=== PATIENT | male | born 1970 | race Caucasian/White ===

== ENCOUNTER → 2017-01-11 | Outpatient (CLI) | payer MEDICARE, MEDICAID ==
--- NOTE | 2017-01-11 15:30 | RADIOLOGY REPORT (SQ) ---
EXAM DESCRIPTION: MRI HEAD COMBO COMPLETED DATE/TIME: 01/11/2017 2:33 pm REASON FOR STUDY: MS(G35), INVOLUNTARY MOVEMENTS (R25.9) G35 MULTIPLE SCLEROSIS R25.9 UNSPECIFIED ABNORMAL INVOLUNTARY MOVEMENTS COMPARISON: 11/25/2015 TECHNIQUE: Multiplanar imaging includes noncontrasted T1, T2, FLAIR, Diffusion with ADC map and post gadolinium contrast T1 sequences. Images stored on PACS. CONTRAST TYPE AND DOSE: 20 mL Multihance. RENAL FUNCTION: GFR > 60. LIMITATIONS: Motion. FINDINGS: ANATOMY: No anomalies. Normal vascular flow voids. Pituitary fossa normal. CSF SPACES: Stable. CEREBRUM: High-signal intensity lesions scattered throughout the white matter on FLAIR sequences are not significantly changed. No evidence of hemorrhage, mass, extraaxial fluid collection or acute isch emic change. No enhancing lesions. POSTERIOR FOSSA: No signal alteration. No hemorrhage. No edema, masses, or mass effect. Internal aileen tory canals, cerebello-pontine angles, mastoids normal. No enhancing lesions. ORBITS: No masses. Globes normal. PARANASAL SINUSES: No fluid levels. Mucosa normal. DIFFUSION: Normal. No evidence of recent infarct. OTHER: No other significant finding. IMPRESSION: Stable appearance consistent with clinical history. No evidence of active demyelination . EVIDENCE OF ACUTE STROKE: NO. TECHNICAL DOCUMENTATION: JOB ID: [id number]- All Rights Reserved
--- NOTE | 2017-01-11 15:40 | RADIOLOGY REPORT (SQ) ---
EXAM DESCRIPTION: MRI CERVICAL SPINE COMBO COMPLETED DATE/TIME: 01/11/2017 2:33 pm REASON FOR STUDY: MS G35 MULTIPLE SCLEROSIS R25.9 UNSPECIFIED ABNORMAL INVOLUNTARY MOVEMENTS COMPARISON: 11/25/2015 TECHNIQUE: Sagittal and Axial imaging includes T1, T2, STIR and gradient echo sequences. T1 post yina olinium sequences. CONTRAST TYPE AND DOSE: 20 mL Multihance. RENAL FUNCTION: None required. The patient is less than 50 years old. LIMITATIONS: Considerable motion artifact. FINDINGS: At the C5 level, approximately 1 cm focus of increased T2 signal in the cord to left of mi dline which does not enhance. Fusiform increased T2 signal in the cord at the C2-3 level without def inite enhancement. Bulging discs C4- 5, C5- 6 and C6-7 which are unchanged. No significant marrow abnormality. IMPRESSION: Technical limitations due to motion. Foci of inactive demyelination in the cord. No de finitive active demyelination. COMMENT: None. TECHNICAL DOCUMENTATION: JOB ID: [id number] [email or web address]- All Rights Reserved
== END ==
LOC: RAD 12:24
PROVIDERS: ATTEND Psychiatry & Neurology Neurology
DX: G35 Multiple sclerosis (principal); R25.9 Unspecified abnormal involuntary movements
CPT/HCPCS: 70553; 72156; A9577

== ENCOUNTER 2017-01-18 10:12 | Inpatient (IN) | payer MEDICARE, MEDICAID ==
[2017-01-18] MEDS ORDERED: CEFTRIAXONE 1 GM/D5W RTU 1 GM/50 ML RTUPB IV ONE (10:17)
[2017-01-18] MEDS ORDERED: NORMAL SALINE 1000 ML 1,000 ML IV ONE (10:17)
--- NOTE | 2017-01-18 10:24 | ER Document Report ---
ED General - General Stated Complaint: FEVER Time Seen by Provider: 01/18/17 10:17 Mode of Arrival: Medic Information source: Patient, Emergency Med Personnel Notes: 46-year-old male history of multiple sclerosis who resides at a care facility presents from the care facility with concerns of fever altered mental status. EMS notes patient's speech is at his baseline. Patient denies a cough or pain anywhere but is noted to have urinated on himself multiple times TRAVEL OUTSIDE OF THE [place] IN LAST 30 DAYS: No - HPI Onset: Yesterday - Patient refused to come in last night - Related Data Allergies/Adverse Reactions: atorvastatin calcium [From Lipitor] Allergy (Verified 01/23/16 16:35) clarithromycin [From Biaxin] Allergy (Verified 01/23/16 16:35) codeine [Codeine] Allergy (Verified 01/23/16 16:35) Past Medical History - Social History Smoking Status: Never Smoker Cigarette use (# per day): No Chew tobacco use (# tins/day): No Smoking Education Provided: No Family History: Reviewed & Not Pertinent - Past Medical History Cardiac Medical History: Reports: Hx Hypercholesterolemia - Immunizations Hx Diphtheria, Pertussis, Tetanus Vaccination: Yes Review of Systems - Review of Systems Notes: REVIEW OF SYSTEMS: CONSTITUTIONAL : Admits fever EENT: Denies eye, ear, throat, or mouth pain or symptoms. Denies nasal or sinus congestion or discharge. Denies throat, tongue, or mouth swelling or difficulty swallowing. CARDIOVASCULAR: Denies chest pain. Denies palpitations or racing or irregular heart beat. Denies ankle edema. RESPIRATORY: Denies cough, cold, or chest congestion. Denies shortness of breath, difficulty breathing, or wheezing. GASTROINTESTINAL: Denies abdominal pain or distention. Denies nausea, vomiting , or diarrhea. Denies blood in vomitus, stools, or per rectum. Denies black, tarry stools. Denies constipation. GENITOURINARY: Denies difficulty urinating, painful urination, burning, frequency, blood in urine, or discharge. MUSCULOSKELETAL: Denies back or neck pain or stiffness. Denies joint pain or swelling. SKIN: Denies rash, lesions or sores. HEMATOLOGIC : Denies easy bruising or bleeding. LYMPHATIC: Denies swollen, enlarged glands. NEUROLOGICAL: Confusion PSYCHIATRIC: Denies anxiety or stress. Denies depression, suicidal ideation, or homicidal ideation. ALL OTHER SYSTEMS REVIEWED AND NEGATIVE. Dictation was performed using [employer] voice recognition software PHYSICAL EXAMINATION: GENERAL: Well-appearing, well-nourished and in no acute distress. Febrile HEAD: Atraumatic, normocephalic. EYES: Pupils equal round and reactive to light, extraocular movements intact, sclera anicteric, conjunctiva are normal. ENT: Nares patent, oropharynx clear without exudates. Moist mucous membranes. NECK: Normal range of motion, supple without lymphadenopathy LUNGS: Breath sounds clear to auscultation bilaterally and equal. No wheezes rales or rhonchi. HEART: Regular rate and rhythm without murmurs ABDOMEN: Soft, nontender, nondistended abdomen. No guarding, no rebound. No masses appreciated. Musculoskeletal: Normal range of motion, no pitting or edema. No cyanosis. NEUROLOGICAL: Baseline speech PSYCH: Normal mood, normal affect. SKIN: Warm, Dry, normal turgor, no rashes or lesions noted. Physical Exam - Vital signs Vitals: Resp BP Pulse Ox 22 H 160/87 H 98 01/18/17 10:30 01/18/17 10:30 01/18/17 10:30 Course - Re-evaluation Re-evalutation: 01/18/17 10:24 Septic workup pending 01/18/17 11:38 Patient is noted to have a UTI, he meets sepsis criteria at this point. Antibiotics have already been given fluids have been started pressure is stable patient will be admitted to the hospitalist service - Vital Signs Vital signs: Temp Pulse Resp BP Pulse Ox 30 H 128/85 H 98 01/18/17 11:01 01/18/17 11:01 01/18/17 11:01 - Laboratory Result Diagrams: 01/18/17 10:40 01/18/17 10:40 Laboratory results interpreted by me: 01/18/17 01/18/17 01/18/17 10:06 10:40 10:40 WBC 13.0 H Plt Count 105 L Seg Neuts % (Manual) 93 H Lymphocytes % (Manual) 5 L Monocytes % (Manual) 2 L Abs Neuts (Manual) 12.1 H VBG pH 7.47 H Urine Protein 100 H Urine Ketones 20 H Urine Blood MODERATE H Urine Nitrite POSITIVE H Urine Urobilinogen 2.0 H Ur Leukocyte Esterase MODERATE H Critical Care Note - Critical Care Note Total time excluding time spent on procedures (mins): 33 Comments: 33 minutes of critical care time spent in direct contact evaluating and reevaluating the patient, treating symptoms, reviewing labs and studies and speaking with family and consultants excluding any procedures Discharge - Discharge Clinical Impression: Encephalopathy Sepsis Qualifiers: Sepsis type: sepsis due to unspecified organism Qualified Code(s): A41.9 - Sepsis, unspecified organism UTI (urinary tract infection) Qualifiers: Urinary tract infection type: acute cystitis Hematuria presence: without hematuria Qualified Code(s): N30.00 - Acute cystitis without hematuria Condition: Stable Disposition: ADMITTED INPATIENT Admitting Provider: Hospitalist Unit Admitted: Telemetry Referrals: PRAVIN DONNELLY MD [Primary Care Provider] - Follow up as needed
[2017-01-18 11:00] LABS: HEMATOCRIT 41.8 % (37.9-51.0); HEMOGLOBIN 14.5 g/dL (13.5-17.0); HGB HCT DIFFERENCE 1.7; MEAN CORPUSCULAR HEMOGLOBIN 31.7 pg (27.0-33.4); MEAN CORPUSCULAR HGB CONC 34.7 g/dL (32.0-36.0); MEAN CORPUSCULAR VOLUME 92 fl (80-97); RED BLOOD COUNT 4.57 10^6/uL (4.35-5.55); RED CELL DISTRIBUTION WIDTH 13.5 % (11.5-14.0)
[2017-01-18 11:01] LABS: VENOUS BLOOD BASE EXCESS 3.4 mmol/L; VENOUS BLOOD HCO3 26.9 mmol/L (20-32); VENOUS BLOOD PCO2 37.6 mmHg (35-63); VENOUS BLOOD PH 7.47 (7.30-7.42)
[2017-01-18 11:18] LABS: ALANINE AMINOTRANSFERASE 27 U/L (21-72); ALBUMIN 3.9 g/dL (3.5-5.0); ALKALINE PHOSPHATASE 79 U/L (38-126); ANION GAP 12 (5-19); ASPARTATE AMINO TRANSFERASE 20 U/L (17-59); BILIRUBIN,DIRECT 0.4 mg/dL (0.0-0.4); BILIRUBIN,TOTAL 0.9 mg/dL (0.2-1.3); BLOOD UREA NITROGEN 11 mg/dL (7-20); CALCIUM 9.1 mg/dL (8.4-10.2); CARBON DIOXIDE 23 mmol/L (22-30); CHLORIDE 104 mmol/L (98-107); CREATININE RESULT 0.59 mg/dL (0.52-1.25); GLUCOSE 104 mg/dL (75-110); POTASSIUM 4.2 mmol/L (3.6-5.0); SODIUM 138.6 mmol/L (137-145); TOTAL PROTEIN 6.6 g/dL (6.3-8.2)
[2017-01-18 11:23] LABS: BASOPHILS % (MANUAL) 0 % (0-2); EOSINOPHILS % (MANUAL) 0 % (0-6); LYMPHOCYTES % (MANUAL) 5 % (13-45); TOTAL CELLS COUNTED 100
[2017-01-18 11:24] LABS: RBC MORPHOLOGY COMMENT NORMO-CYTIC/CHROMIC
[2017-01-18] MEDS ORDERED: NORMAL SALINE 1000 ML 1,000 ML IV PRN (11:28)
[2017-01-18] MEDS ORDERED: IBUPROFEN 800 MG TABLET PO ONE (11:28)
[2017-01-18 11:35] LABS: APPEARANCE,URINE CLOUDY; BILIRUBIN,URINE NEGATIVE (NEGATIVE); GLUCOSE, URINE NEGATIVE (NEGATIVE); KETONES,URINE 20 mg/dL (NEGATIVE); LEUKOCYTE ESTERASE,URINE MODERATE (NEGATIVE); NITRITE,URINE POSITIVE (NEGATIVE); PROTEIN,URINE 100 mg/dL (NEGATIVE); URINE SPECIFIC GRAVITY 1.013
[2017-01-18] MEDS ORDERED: ONDANSETRON HCL INJ/PF 4 MG/2 ML SDV IV PRN (11:50)
--- NOTE | 2017-01-18 12:26 | PDOC H&P ---
History of Present Illness Admission Date/PCP: 01/18/17 12:05 PRAVIN DONNELLY, Patient complains of: Altered mental status and fever History of Present Illness: KRISTYN RUTLEDGE is a 46 year old male with a history of multiple sclerosis, who presents from the snf facility he resides in with altered mental status and fever since last evening up to 103. History is impossible to get from patient due to his dysarthria. History is obtained from facility records and emergency room personnel. He was found to have a positive urinalysis , with moderate leucocytes and blood, as well as positive nitrates. He is tachycardic, tachypneic and febrile with rectal temperature of 103.2 on arrival. Medication reconciliation has not been complete by pharmacy yet Past Medical History Cardiac Medical History: Reports: Hyperlipidema Pulmonary Medical History: Reports: None EENT Medical History: Reports: None Neurological Medical History: Reports: Multiple Sclerosis Endocrine Medical History: Reports: None Renal/ Medical History: Reports: None GI Medical History: Reports: None Musculoskeltal Medical History: Reports: Other - Weakness in all extremities due to MS Skin Medical History: Reports: None Psychiatric Medical History: Reports: None Traumatic Medical History: Reports: None Hematology: Reports: None Infectious Medical History: Reports: None Past Surgical History Past Surgical History: Reports: None Social History Information Source: Transfer Record, Emergency Med Personnel, Outside Facility Records Lives with: Snf Smoking Status: Never Smoker Frequency of Alcohol Use: None Hx Recreational Drug Use: No - Advance Directive Resuscitation Status: Full Code Surrogate healthcare decision maker:: Dicker Ortega Family History Family History: Reviewed & Not Pertinent Parental Family History Reviewed: Yes Children Family History Reviewed: NA Sibling(s) Family History Reviewed.: Yes Medication/Allergy Allergies/Adverse Reactions: atorvastatin calcium [From Lipitor] Allergy (Verified 01/18/17 11:49) clarithromycin [From Biaxin] Allergy (Verified 01/18/17 11:49) codeine [Codeine] Allergy (Verified 01/18/17 11:49) Review of Systems ROS unobtainable: Due to mental status Constitutional: PRESENT: chills, fever(s), weakness Eyes: ABSENT: visual disturbances Ears: ABSENT: hearing changes Physical Exam Vital Signs: Temp Pulse Resp BP Pulse Ox 103.4 F H 30 H 128/85 H 98 01/18/17 11:00 01/18/17 11:01 01/18/17 11:01 01/18/17 11:01 General appearance: PRESENT: mild distress, well-developed, well-nourished - Chronically ill appearing Head exam: PRESENT: atraumatic, normocephalic Eye exam: PRESENT: conjunctiva pink, EOMI, PERRLA. ABSENT: scleral icterus Ear exam: PRESENT: normal external ear exam Mouth exam: PRESENT: moist, tongue midline Neck exam: ABSENT: carotid bruit, JVD, lymphadenopathy, thyromegaly Respiratory exam: PRESENT: clear to auscultation jarrett. ABSENT: rales, rhonchi, wheezes Cardiovascular exam: PRESENT: RRR. ABSENT: diastolic murmur, rubs, systolic murmur Pulses: PRESENT: normal dorsalis pedis pul Vascular exam: PRESENT: normal capillary refill GI/Abdominal exam: PRESENT: normal bowel sounds, soft. ABSENT: distended, guarding, mass, organolmegaly, rebound, tenderness Rectal exam: PRESENT: deferred Extremities exam: PRESENT: full ROM. ABSENT: calf tenderness, clubbing, pedal edema Neurological exam: PRESENT: alert, altered, abnormal gait, motor sensory deficit , other - dysarthria Psychiatric exam: PRESENT: anxious Skin exam: PRESENT: other - small open wound on right fifth toe Assessment & Plan - Diagnosis (1) Encephalopathy Is this a current diagnosis for this admission?: Yes (2) Sepsis Qualifiers: Sepsis type: sepsis due to unspecified organism Qualified Code(s): A41.9 - Sepsis, unspecified organism Is this a current diagnosis for this admission?: Yes Plan: Blood cultures, urine cultures sent. Patient is being aggressively rehydrated with IV fluids. Broad spectrum antibiotic therapy started (3) UTI (urinary tract infection) Qualifiers: Urinary tract infection type: acute cystitis Hematuria presence: without hematuria Qualified Code(s): N30.00 - Acute cystitis without hematuria Is this a current diagnosis for this admission?: Yes (4) Ambulatory dysfunction Is this a current diagnosis for this admission?: Yes Plan: Patient is nonambulatory due to MS (5) Dyslipidemia Is this a current diagnosis for this admission?: Yes Plan: Continue statin (6) DVT prophylaxis Is this a current diagnosis for this admission?: Yes Plan: Heparin 5000 u sq q8h - Time Time Spent: 50 to 70 Minutes Critical Time spent with patient: 25-34 minutes Medications reviewed and adjusted accordingly: Yes Anticipated discharge: SNF
--- NOTE | 2017-01-18 12:53 | EKG REPORT ---
SEVERITY:- BORDERLINE ECG - SINUS TACHYCARDIA BORDERLINE LEFT AXIS DEVIATION : Confirmed by: Mino Cordero MD 18-Jan-2017 12:52:48
[2017-01-18] MEDS ORDERED: DIPHENHYDRAMINE HCL 50 MG/ML VIAL IV ONE (13:43)
[2017-01-18] MEDS: HEPARIN SOD (PORCINE) 5,000 UNIT/ML 1 ML SYRINGE SUBCUT SCH ×2 (14:14→21:50)
[2017-01-18] MEDS ORDERED: SENNOSIDES/DOCUSATE 8.6-50 MG 1 EACH TABLET PO PRN (16:07)
[2017-01-18] MEDS ORDERED: MENTHOL TP PRN (16:07)
[2017-01-18] MEDS ORDERED: NICOTINE 21 MG/24 HR PATCH.TD24 TD PRN (16:07)
[2017-01-18] MEDS: DOCUSATE SODIUM 100 MG CAPSULE PO SCH (16:29)
[2017-01-18] MEDS ORDERED: DOCUSATE SODIUM 100 MG/10 ML UDC PO SCH (18:00)
[2017-01-18] MEDS: ACETAMINOPHEN 325 MG TABLET PO PRN ×2 (18:45→22:41)
[2017-01-18] MEDS: DIPHENHYDRAMINE HCL 25 MG CAPSULE PO PRN (18:46)
[2017-01-18] MEDS: FAMOTIDINE 20 MG TABLET PO SCH (21:49)
[2017-01-18] MEDS: NORMAL SALINE 1000 ML 1,000 ML IV PRN (23:23)
[2017-01-19] MEDS: DIPHENHYDRAMINE HCL 25 MG CAPSULE PO PRN ×3 (00:23→22:31)
[2017-01-19] MEDS: ACETAMINOPHEN 325 MG TABLET PO PRN ×3 (03:27→21:04)
[2017-01-19 05:34] LABS: HEMATOCRIT 34.8 % (37.9-51.0); HGB HCT DIFFERENCE 0.9; MEAN CORPUSCULAR HGB CONC 34.2 g/dL (32.0-36.0); MEAN CORPUSCULAR VOLUME 91 fl (80-97); RED BLOOD COUNT 3.83 10^6/uL (4.35-5.55); RED CELL DISTRIBUTION WIDTH 13.9 % (11.5-14.0); WHITE BLOOD COUNT 11.2 10^3/uL (4.0-10.5)
[2017-01-19 05:46] LABS: ALANINE AMINOTRANSFERASE 27 U/L (21-72); ALBUMIN 2.7 g/dL (3.5-5.0); ALKALINE PHOSPHATASE 60 U/L (38-126); ANION GAP 8 (5-19); ASPARTATE AMINO TRANSFERASE 25 U/L (17-59); BILIRUBIN,DIRECT 0.4 mg/dL (0.0-0.4); BILIRUBIN,TOTAL 0.7 mg/dL (0.2-1.3); BLOOD UREA NITROGEN 9 mg/dL (7-20); CALCIUM 8.4 mg/dL (8.4-10.2); CARBON DIOXIDE 20 mmol/L (22-30); CHLORIDE 110 mmol/L (98-107); GLUCOSE 97 mg/dL (75-110); HEMOGLOBIN 11.9 g/dL (13.5-17.0); MAGNESIUM 1.9 mg/dL (1.6-2.3); SODIUM 138.4 mmol/L (137-145)
[2017-01-19 05:57] LABS: POTASSIUM 3.1 mmol/L (3.6-5.0)
[2017-01-19 06:00] LABS: BAND NEUTROPHILS % (MANUAL) 6 % (3-5); BASOPHILS % (MANUAL) 0 % (0-2); EOSINOPHILS % (MANUAL) 0 % (0-6); LYMPHOCYTES % (MANUAL) 2 % (13-45); TOTAL CELLS COUNTED 100
[2017-01-19 06:05] LABS: TOXIC GRANULATION 1+
[2017-01-19 06:06] LABS: RBC MORPHOLOGY COMMENT NORMO-CYTIC/CHROMIC; TOXIC VACUOLATION PRESENT
[2017-01-19] MEDS: HEPARIN SOD (PORCINE) 5,000 UNIT/ML 1 ML SYRINGE SUBCUT SCH ×3 (06:38→21:59)
[2017-01-19] MEDS: NORMAL SALINE 1000 ML 1,000 ML IV PRN (07:18)
[2017-01-19] MEDS ORDERED: METHYL SALICYLATE/MENTHOL BALM 29 GM TP PRN (07:29)
[2017-01-19] MEDS ORDERED: ONDANSETRON HCL INJ/PF 4 MG/2 ML SDV IV PRN (07:30)
[2017-01-19] MEDS ORDERED: NICOTINE 21 MG/24 HR PATCH.TD24 TD PRN (07:30)
[2017-01-19] MEDS: LANSOPRAZOLE 30 MG TAB.RAP.DR PO SCH (08:06)
[2017-01-19] MEDS ORDERED: CEFTRIAXONE 1 GM/D5W RTU 1 GM/50 ML RTUPB IV SCH (10:00)
[2017-01-19] MEDS: POTASSIUM CHLORIDE 10 MEQ TABLET.SA PO SCH ×2 (10:13→22:18)
[2017-01-19] MEDS: DOCUSATE SODIUM 100 MG CAPSULE PO SCH ×2 (10:13→17:15)
[2017-01-19] MEDS: ERTAPENEM SODIUM 1 GM in NORMAL SALINE 50 ML IV SCH (10:13)
[2017-01-19] MEDS: FAMOTIDINE 20 MG TABLET PO SCH ×2 (10:13→22:18)
[2017-01-19] MEDS ORDERED: VANCOMYCIN HCL 0 MG in DEXTROSE 5%-WATER 250 ML IV NR (11:00)
--- NOTE | 2017-01-19 12:11 | PDOC PROGRESS REPORT ---
Subjective Progress Note for:: 01/19/17 Subjective:: Patient is seen on morning rounds. He is resting comfortably in bed. He denies any cough, shortness of breath or dyspnea. He denies nausea, vomiting or abdominal pain. He has significant dysarthria and is unable to complete review of systems. He continued to have fever overnight. He states he feels better. Physical Exam Vital Signs: Temp Pulse Resp BP Pulse Ox 100.0 F 108 H 18 128/68 H 93 01/19/17 07:46 01/19/17 07:46 01/19/17 07:46 01/19/17 07:46 01/19/17 07:46 Intake & Output 01/18/17 01/19/17 01/20/17 06:59 06:59 06:59 Intake Total 2072 Output Total 650 Balance 1422 Weight 100.8 kg General appearance: PRESENT: no acute distress, obese, well-developed, well- nourished Head exam: PRESENT: atraumatic, normocephalic Eye exam: PRESENT: conjunctiva pink, EOMI, PERRLA. ABSENT: scleral icterus Ear exam: PRESENT: normal external ear exam Mouth exam: PRESENT: moist, tongue midline Neck exam: ABSENT: carotid bruit, JVD, lymphadenopathy, thyromegaly Respiratory exam: PRESENT: clear to auscultation jarrett. ABSENT: rales, rhonchi, wheezes Cardiovascular exam: PRESENT: RRR. ABSENT: diastolic murmur, rubs, systolic murmur Pulses: PRESENT: normal dorsalis pedis pul Vascular exam: PRESENT: normal capillary refill GI/Abdominal exam: PRESENT: normal bowel sounds, soft. ABSENT: distended, guarding, mass, organolmegaly, rebound, tenderness Rectal exam: PRESENT: deferred Extremities exam: PRESENT: full ROM. ABSENT: calf tenderness, clubbing, pedal edema Neurological exam: PRESENT: alert, awake, CN II-XII grossly intact. ABSENT: motor sensory deficit Psychiatric exam: PRESENT: appropriate affect, normal mood. ABSENT: homicidal ideation, suicidal ideation Skin exam: PRESENT: dry, intact, warm. ABSENT: cyanosis, rash Results Laboratory Results: 01/19/17 04:50 01/19/17 04:50 01/19/17 01/19/17 04:50 04:50 WBC 11.2 H RBC 3.83 L Hgb 11.9 L D Hct 34.8 L MCV 91 MCH 31.0 MCHC 34.2 RDW 13.9 Plt Count 81 L Seg Neutrophils % Not Reportable Lymphocytes % Not Reportable Monocytes % Not Reportable Eosinophils % Not Reportable Basophils % Not Reportable Absolute Neutrophils Not Reportable Absolute Lymphocytes Not Reportable Absolute Monocytes Not Reportable Absolute Eosinophils Not Reportable Absolute Basophils Not Reportable Sodium 138.4 Potassium 3.1 L D Chloride 110 H Carbon Dioxide 20 L Anion Gap 8 BUN 9 Creatinine 0.60 Est GFR ( Amer) > 60 Est GFR (Non-Af Amer) > 60 Glucose 97 Calcium 8.4 Magnesium 1.9 Total Bilirubin 0.7 AST 25 ALT 27 Alkaline Phosphatase 60 Total Protein 5.0 L Albumin 2.7 L Assessment & Plan - Diagnosis (1) Encephalopathy Is this a current diagnosis for this admission?: Yes Plan: Resolved to baseline (2) Sepsis Qualifiers: Sepsis type: sepsis due to unspecified organism Qualified Code(s): A41.9 - Sepsis, unspecified organism Is this a current diagnosis for this admission?: Yes Plan: Tachycardia, tachypneic and fever most likely have resolved. Will continue antibiotics and follow cultures (3) UTI (urinary tract infection) Qualifiers: Urinary tract infection type: acute cystitis Hematuria presence: without hematuria Qualified Code(s): N30.00 - Acute cystitis without hematuria Is this a current diagnosis for this admission?: Yes Plan: Gram negative rods, will change to Invanz since he's still having fever (4) Ambulatory dysfunction Is this a current diagnosis for this admission?: Yes Plan: Patient is nonambulatory due to MS (5) Dyslipidemia Is this a current diagnosis for this admission?: Yes Plan: Continue statin (6) DVT prophylaxis Is this a current diagnosis for this admission?: Yes Plan: Heparin 5000 u sq q8h - Time Time Spent with patient: 25-34 minutes Critical Time spent with patient: 15-24 minutes Medications reviewed and adjusted accordingly: Yes Anticipated discharge: SNF
[2017-01-19] MEDS ORDERED: VANCOMYCIN HCL 2,000 MG in DEXTROSE 5%-WATER 500 ML IV ONE (14:00)
[2017-01-19] MEDS ORDERED: GUAIFENESIN SYRP 200 MG/10 ML UDC PO PRN (17:08)
--- NOTE | 2017-01-19 18:31 | RADIOLOGY REPORT (SQ) ---
EXAM DESCRIPTION: CHEST SINGLE VIEW COMPLETED DATE/TIME: 01/19/2017 6:09 pm REASON FOR STUDY: Cough and fever COMPARISON: None. EXAM PARAMETERS: NUMBER OF VIEWS: One view. TECHNIQUE: Single frontal radiographic view of the chest acquired. RADIATION DOSE: NA LIMITATIONS: None. FINDINGS: LUNGS AND PLEURA: No opacities, masses or pneumothorax. No pleural effusion. MEDIASTINUM AND HILAR STRUCTURES: No masses. Contour normal. HEART AND VASCULAR STRUCTURES: Heart normal in size. Normal vasculature. BONES: No acute findings. HARDWARE: None in the chest. OTHER: No other significant finding. IMPRESSION: NO ACUTE RADIOGRAPHIC FINDING IN THE CHEST. TECHNICAL DOCUMENTATION: JOB ID: [id number]
[2017-01-19] MEDS: VANCOMYCIN HCL 1,500 MG in DEXTROSE 5%-WATER 250 ML IV SCH (22:19)
[2017-01-20 05:14] LABS: ABSOLUTE BASOPHILS # (AUTO) 0.1 10^3/uL (0.0-0.2); ABSOLUTE LYMPHOCYTES (AUTO) 0.8 10^3/uL (0.5-4.7); ABSOLUTE NEUT (AUTO) 6.1 10^3/uL (1.7-8.2); BASOPHILS % (AUTO) 0.6 % (0-2); EOSINOPHILS % (AUTO) 0.2 % (0-6); HEMATOCRIT 37.3 % (37.9-51.0); HEMOGLOBIN 12.9 g/dL (13.5-17.0); HGB HCT DIFFERENCE 1.4; LYMPHOCYTES % (AUTO) 9.8 % (13-45); MEAN CORPUSCULAR HEMOGLOBIN 30.9 pg (27.0-33.4); MEAN CORPUSCULAR HGB CONC 34.5 g/dL (32.0-36.0); MEAN CORPUSCULAR VOLUME 90 fl (80-97); MONOCYTES % (AUTO) 12.2 % (3-13); RED BLOOD COUNT 4.17 10^6/uL (4.35-5.55); RED CELL DISTRIBUTION WIDTH 13.2 % (11.5-14.0); SEGMENTED NEUTROPHILS % (AUTO) 77.2 % (42-78); WHITE BLOOD COUNT 7.9 10^3/uL (4.0-10.5)
[2017-01-20 05:16] LABS: ANION GAP 9 (5-19); BLOOD UREA NITROGEN 8 mg/dL (7-20); CALCIUM 8.7 mg/dL (8.4-10.2); CARBON DIOXIDE 23 mmol/L (22-30); CHLORIDE 110 mmol/L (98-107); CREATININE RESULT 0.48 mg/dL (0.52-1.25); GLUCOSE 98 mg/dL (75-110); MAGNESIUM 2.3 mg/dL (1.6-2.3); POTASSIUM 3.9 mmol/L (3.6-5.0); SODIUM 141.9 mmol/L (137-145)
[2017-01-20] MEDS: VANCOMYCIN HCL 1,500 MG in DEXTROSE 5%-WATER 250 ML IV SCH ×3 (06:04→22:55)
[2017-01-20] MEDS: HEPARIN SOD (PORCINE) 5,000 UNIT/ML 1 ML SYRINGE SUBCUT SCH ×3 (06:10→22:42)
--- NOTE | 2017-01-20 08:28 | PDOC PROGRESS REPORT ---
Subjective Progress Note for:: 01/20/17 Subjective:: Patient is seen on morning rounds. He is resting comfortably in bed. He denies any shortness of breath or dyspnea. He has a nonproductive cough. Chest xray done yesterday afternoon was unremarkable for any abnormalities. He denies nausea, vomiting or abdominal pain. He has significant dysarthria and is unable to complete review of systems. He had no fever overnight. He did have one positive blood culture which was positive for GM positive cocci. He states he feels better. Physical Exam Vital Signs: Temp Pulse Resp BP Pulse Ox 98.6 F 85 19 114/68 100 01/20/17 07:56 01/20/17 07:56 01/20/17 07:56 01/20/17 07:56 01/20/17 07:56 Intake & Output 01/19/17 01/20/17 01/21/17 06:59 06:59 06:59 Intake Total 2072 3038 Output Total 650 2395 Balance 1422 643 Weight 100.8 kg General appearance: PRESENT: no acute distress, obese, well-developed, well- nourished Head exam: PRESENT: atraumatic, normocephalic Eye exam: PRESENT: conjunctiva pink, EOMI, PERRLA. ABSENT: scleral icterus Ear exam: PRESENT: normal external ear exam Mouth exam: PRESENT: moist, tongue midline Neck exam: ABSENT: carotid bruit, JVD, lymphadenopathy, thyromegaly Respiratory exam: PRESENT: clear to auscultation jarrett. ABSENT: rales, rhonchi, wheezes Cardiovascular exam: PRESENT: RRR. ABSENT: diastolic murmur, rubs, systolic murmur Pulses: PRESENT: normal dorsalis pedis pul Vascular exam: PRESENT: normal capillary refill GI/Abdominal exam: PRESENT: normal bowel sounds, soft. ABSENT: distended, guarding, mass, organolmegaly, rebound, tenderness Rectal exam: PRESENT: deferred Extremities exam: PRESENT: other - contractures of hands, lower extremity weakness bilaterally Musculoskeletal exam: PRESENT: other - as above Neurological exam: PRESENT: alert, CN II-XII grossly intact, aphasic Psychiatric exam: PRESENT: appropriate affect, normal mood. ABSENT: homicidal ideation, suicidal ideation Skin exam: PRESENT: dry, intact, warm, other - open wound right fifth toe, no redness or drainage. ABSENT: cyanosis, rash Results Laboratory Results: 01/20/17 03:58 01/20/17 03:58 01/20/17 01/20/17 03:58 03:58 WBC 7.9 RBC 4.17 L Hgb 12.9 L Hct 37.3 L MCV 90 MCH 30.9 MCHC 34.5 RDW 13.2 Plt Count 80 L Seg Neutrophils % 77.2 Lymphocytes % 9.8 L Monocytes % 12.2 Eosinophils % 0.2 Basophils % 0.6 Absolute Neutrophils 6.1 Absolute Lymphocytes 0.8 Absolute Monocytes 1.0 Absolute Eosinophils 0.0 Absolute Basophils 0.1 Sodium 141.9 Potassium 3.9 Chloride 110 H Carbon Dioxide 23 Anion Gap 9 BUN 8 Creatinine 0.48 L Est GFR ( Amer) > 60 Est GFR (Non-Af Amer) > 60 Glucose 98 Calcium 8.7 Magnesium 2.3 Impressions: Chest X-Ray 01/19/17 17:07 IMPRESSION: NO ACUTE RADIOGRAPHIC FINDING IN THE CHEST. Assessment & Plan - Diagnosis (1) UTI (urinary tract infection) Qualifiers: Urinary tract infection type: acute cystitis Hematuria presence: without hematuria Qualified Code(s): N30.00 - Acute cystitis without hematuria Is this a current diagnosis for this admission?: Yes Plan: Gram negative rods, will change to Invanz since he's still having fever. Culture grew ecoli pansensitive with no resistance. Will transition to oral antibiotics (2) Sepsis Qualifiers: Sepsis type: sepsis due to unspecified organism Qualified Code(s): A41.9 - Sepsis, unspecified organism Is this a current diagnosis for this admission?: Yes (3) Encephalopathy Is this a current diagnosis for this admission?: Yes Plan: Resolved to baseline (4) Ambulatory dysfunction Is this a current diagnosis for this admission?: Yes Plan: Patient is nonambulatory due to MS (5) Dyslipidemia Is this a current diagnosis for this admission?: Yes Plan: Continue statin (6) Multiple sclerosis Is this a current diagnosis for this admission?: Yes Plan: Continue home medications (7) Positive blood culture Is this a current diagnosis for this admission?: Yes Plan: Will continue vancomycin until tomorrow. May be contaminant (8) DVT prophylaxis Is this a current diagnosis for this admission?: Yes Plan: Heparin 5000 u sq q8h - Time Time Spent with patient: 25-34 minutes Critical Time spent with patient: 15-24 minutes Medications reviewed and adjusted accordingly: Yes Anticipated discharge: SNF Within: within 48 hours
[2017-01-20] MEDS: LANSOPRAZOLE 30 MG TAB.RAP.DR PO SCH (08:48)
[2017-01-20] MEDS: DOCUSATE SODIUM 100 MG CAPSULE PO SCH ×2 (10:30→17:06)
[2017-01-20] MEDS: FAMOTIDINE 20 MG TABLET PO SCH ×2 (10:34→22:40)
[2017-01-20] MEDS: ERTAPENEM SODIUM 1 GM in NORMAL SALINE 50 ML IV SCH (10:35)
[2017-01-20] MEDS: DIPHENHYDRAMINE HCL 25 MG CAPSULE PO PRN ×2 (10:57→17:05)
[2017-01-20] MEDS: ACETAMINOPHEN 325 MG TABLET PO PRN ×2 (11:31→22:41)
[2017-01-20] MEDS ORDERED: SIMVASTATIN 40 MG TABLET PO SCH (22:00)
[2017-01-21] MEDS: HEPARIN SOD (PORCINE) 5,000 UNIT/ML 1 ML SYRINGE SUBCUT SCH ×2 (05:16→16:03)
[2017-01-21] MEDS: VANCOMYCIN HCL 1,500 MG in DEXTROSE 5%-WATER 250 ML IV SCH (05:24)
[2017-01-21 06:43] LABS: ABSOLUTE EOSINOPHILS # (AUTO) 0.1 10^3/uL (0.0-0.6); ABSOLUTE LYMPHOCYTES (AUTO) 0.9 10^3/uL (0.5-4.7); ABSOLUTE MONOCYTES (AUTO) 0.7 10^3/uL (0.1-1.4); BASOPHILS % (AUTO) 0.8 % (0-2); EOSINOPHILS % (AUTO) 0.9 % (0-6); HEMATOCRIT 37.9 % (37.9-51.0); HEMOGLOBIN 12.7 g/dL (13.5-17.0); HGB HCT DIFFERENCE 0.2; LYMPHOCYTES % (AUTO) 15.4 % (13-45); MEAN CORPUSCULAR HEMOGLOBIN 30.5 pg (27.0-33.4); MEAN CORPUSCULAR HGB CONC 33.6 g/dL (32.0-36.0); MEAN CORPUSCULAR VOLUME 91 fl (80-97); MONOCYTES % (AUTO) 12.6 % (3-13); RED BLOOD COUNT 4.17 10^6/uL (4.35-5.55); RED CELL DISTRIBUTION WIDTH 13.7 % (11.5-14.0); SEGMENTED NEUTROPHILS % (AUTO) 70.3 % (42-78); WHITE BLOOD COUNT 5.7 10^3/uL (4.0-10.5)
[2017-01-21 07:09] LABS: BLOOD UREA NITROGEN 12 mg/dL (7-20); CALCIUM 8.9 mg/dL (8.4-10.2); CREATININE RESULT 0.45 mg/dL (0.52-1.25); GLUCOSE 106 mg/dL (75-110)
[2017-01-21 07:10] LABS: ANION GAP 9 (5-19); CARBON DIOXIDE 23 mmol/L (22-30); CHLORIDE 108 mmol/L (98-107); POTASSIUM 3.6 mmol/L (3.6-5.0); SODIUM 140.4 mmol/L (137-145)
--- NOTE | 2017-01-21 09:01 | PDOC TRANSFER SUMMARY ---
General - Admit/Disc Date/PCP Admission Date/Primary Care Provider: 01/18/17 11:50 PRAVIN DONNELLY, Discharge Date: 01/21/17 - Discharge Diagnosis (1) UTI (urinary tract infection) Is this a current diagnosis for this admission?: Yes Summary: Continue Cipro 500 mg po bid x 11 more days (2) Sepsis Is this a current diagnosis for this admission?: Yes Summary: Resolved (3) Encephalopathy Is this a current diagnosis for this admission?: Yes (4) Ambulatory dysfunction Is this a current diagnosis for this admission?: Yes Summary: Continue PT and OT (5) Dyslipidemia Is this a current diagnosis for this admission?: Yes Summary: Continue statin (6) Multiple sclerosis Is this a current diagnosis for this admission?: Yes Summary: Continue current medications (7) Positive blood culture Is this a current diagnosis for this admission?: Yes Summary: Contaminant (8) DVT prophylaxis Is this a current diagnosis for this admission?: Yes (9) Expressive aphasia Is this a current diagnosis for this admission?: Yes - Additional Information Resuscitation Status: Full Code Discharge Diet: Regular Discharge Activity: Activity As Tolerated Home Medications: Acetaminophen [Tylenol Extra Strength 500 mg Tablet] 2 tab PO BIDP PRN 01/18/17 Acetaminophen [Tylenol Extra Strength 500 mg Tablet] 2 tab PO DAILY 01/18/17 Benzocaine [Orajel] 1 applic MM Q4HP PRN 01/18/17 Dimethyl Fumarate [Tecfidera] 240 mg PO BID 01/18/17 Menthol [Bengay] 1 applic TP Q6HP PRN 01/18/17 Pantoprazole Sodium [Protonix] 40 mg PO QAM 01/18/17 Pravastatin Sodium [Pravachol] 80 mg PO QHS 01/18/17 Sennosides/Docusate 8.6-50 mg [Senna Plus Tablet] 1 tab PO BIDP PRN 01/18/17 Ciprofloxacin HCl [Cipro 500 mg Tablet] 500 mg PO Q12 #22 tablet 01/21/17 Diphenhydramine HCl [Benadryl 25 mg Capsule] 25 mg PO Q6HP PRN capsule History of Present Illness Admission Date/PCP: 01/18/17 11:50 PRAVIN DONNELLY, Patient complains of: Fever and altered mental status History of Present Illness: KRISTYN RUTLEDGE is a 46 year old male with a history of multiple sclerosis, who presents from the intermediate facility he resides in with altered mental status and fever since last evening up to 103. History is impossible to get from patient due to his dysarthria. History is obtained from facility records and emergency room personnel. He was found to have a positive urinalysis , with moderate leucocytes and blood, as well as positive nitrates. He is tachycardic, tachypneic and febrile with rectal temperature of 103.2 on arrival. Medication reconciliation has not been complete by pharmacy yet Hospital Course Hospital Course: Patient was admitted to [facility] on telemetry to the hospitalist service. IV fluids improved tachycardia and tachypnea. He was started on IV broad spectrum antibiotics after cultures were obtained. Patient's fevers resolved after 24 hrs of antibiotics. His mentation improved to baseline. His leucocytosis resolved after 48 hrs. One blood culture was reported positive for GM positive cocci. This was thought to be a contaminant. The patient has been stable. Urine culture grew e coli which was robles sensitive. He was transitioned from IV antibiotics to po Cipro for discharge. Physical Exam Vital Signs: Temp Pulse Resp BP Pulse Ox 98.4 F 83 19 114/82 100 01/21/17 06:16 01/21/17 06:16 01/21/17 06:16 01/21/17 06:16 01/21/17 06:16 Intake & Output 01/20/17 01/21/17 01/22/17 06:59 06:59 06:59 Intake Total 3038 1294 Output Total 2395 1005 Balance 643 289 Results Laboratory Results: 01/21/17 05:54 01/21/17 05:54 01/21/17 01/21/17 05:54 05:54 WBC 5.7 RBC 4.17 L Hgb 12.7 L Hct 37.9 MCV 91 MCH 30.5 MCHC 33.6 RDW 13.7 Plt Count 100 L Seg Neutrophils % 70.3 Lymphocytes % 15.4 Monocytes % 12.6 Eosinophils % 0.9 Basophils % 0.8 Absolute Neutrophils 4.0 Absolute Lymphocytes 0.9 Absolute Monocytes 0.7 Absolute Eosinophils 0.1 Absolute Basophils 0.0 Sodium 140.4 Potassium 3.6 Chloride 108 H Carbon Dioxide 23 Anion Gap 9 BUN 12 Creatinine 0.45 L Est GFR ( Amer) > 60 Est GFR (Non-Af Amer) > 60 Glucose 106 Calcium 8.9 Impressions: Chest X-Ray 01/19/17 17:07 IMPRESSION: NO ACUTE RADIOGRAPHIC FINDING IN THE CHEST. Transfer Plan - Time Spent with Patient Time spent with patient: Less than 30 Minutes Qualifiers PATEINT BEING DISCHARGED WITH ANY OF THE FOLLOWING DIAGNOSIS?: No Plan Discharge Plan: Return to [facility] Time Spent: Less than 30 Minutes
[2017-01-21] MEDS ORDERED: CIPROFLOXACIN HCL 500 MG TABLET PO SCH (10:00)
[2017-01-21] MEDS: LANSOPRAZOLE 30 MG TAB.RAP.DR PO SCH (10:53)
[2017-01-21] MEDS: FAMOTIDINE 20 MG TABLET PO SCH (10:54)
[2017-01-21] MEDS: DOCUSATE SODIUM 100 MG CAPSULE PO SCH ×2 (10:56→17:31)
[2017-01-21 20:34] VITALS: BP 131/77
== END 2017-01-21 20:00 | DRG 871 ==
LOC: ER 10:12 → EH 11:50 → UNDOADMIN 12:05 → EH 12:05 → 3W 14:52
PROVIDERS: ADMIT Family Medicine; ATTEND Family Medicine
DX: A41.9 Sepsis, unspecified organism (principal); G93.40 Encephalopathy, unspecified; N30.00 Acute cystitis without hematuria; R47.01 Aphasia; E78.5 Hyperlipidemia, unspecified; G35 Multiple sclerosis; Z79.899 Other long term (current) drug therapy; Z88.8 Allergy status to other drugs, medicaments and biological substances; Z88.3 Allergy status to other anti-infective agents; Z88.6 Allergy status to analgesic agent
CPT/HCPCS: 36415; 71010; 80048; 80053; 81001; 82803; 82962; 83605; 83735; 85025; 85610; 87040; 87077; 87086; 87088; 87186; 93005; 93010; 96365; 99291; J0696; J1200; J1335; J1644; J3370; J3490; J7030; J7060

== ENCOUNTER → 2018-06-08 | Outpatient (CLI) | payer MEDICARE, MEDICAID ==
--- NOTE | 2018-06-08 16:12 | RADIOLOGY REPORT (SQ) ---
EXAM DESCRIPTION: CT SOFT TISSUE NECK WITH COMPLETED DATE/TIME: 06/08/2018 1:42 pm REASON FOR STUDY: R59.0 LOCALIZED ENLARGED LYMPH NODES R59.0 LOCALIZED ENLARGED LYMPH NODES R22.0 LOCALIZED SWELLING, MASS AND LUMP, HEAD COMPARISON: 01/11/2017 TECHNIQUE: Post IV contrasted scanning from skull base through lung apices with review of bone, soft tissue and lung windows. Reconstructed coronal and sagittal MPR images reviewed. All images stored on PACS. All CT scanners at this facility use dose modulation, iterative reconstruction, and/or weight based d osing when appropriate to reduce radiation dose to as low as reasonably achievable (ALARA). [facility]: Dose Right [facility]: CareDose [facility]: Dose Right [facility]: Teradose 4D [facility]: Cloudy Days CONTRAST TYPE AND DOSE: contrast/concentration: Isovue 350.00 mg/ml; Total Contrast Delivered: 75.0 ml; Total Saline Delivered: 55.0 ml Omnipaque 350 75 cc RENAL FUNCTION: Creatinine 0.5 RADIATION DOSE: . LIMITATIONS: None. FINDINGS: SKULL BASE: Partially visualized bifrontal hypoattenuation, right greater than left and si milar in appearance compared to MRI dated 01/11/2017. Skull base is intact. MAJOR SALIVARY GLANDS: No solid or cystic masses. No inflammatory changes. LYMPHADENOPATHY: No adenopathy. MUCOSAL MASSES OR ASYMMETRY: No mucosal masses or asymmetry. LARYNX/CORDS: No abnormal findings. VASCULAR STRUCTURES: The major vessels are patent. LUNG APICES: Clear. BONES: No acute bony abnormality. No discrete lytic or blastic osseous lesions. THYROID: Normal size. No masses. PARANASAL SINUSES: Clear. OTHER: Skin marker along the right neck corresponds to underlying skin fold and sternocleidomastoid m uscle. No evidence of focal mass, abnormal lymph node or other finding to account for patient's symp toms. Dental hardware present. IMPRESSION: No evidence of abnormal mass, collection or lymphadenopathy.Skin marker along the right neck corresponds to underlying skin fold and sternocleidomastoid muscle. No other finding to account for patient's symptoms. Stable appearance of the partially evaluated bilateral frontal lobe hypoattenuation compared to prior s MRI. TECHNICAL DOCUMENTATION: JOB ID: [id number] Quality ID # [id number]: Final reports with documentation of one or more dose reduction techniques (e.g., Au tomated exposure control, adjustment of the mA and/or kV according to patient size, use of iterative reconstruction technique) 2010 [employer]- All Rights Reserved Reading location - IP/workstation name: [email or web address]
== END ==
LOC: RAD 13:03
PROVIDERS: ATTEND Family Medicine Geriatric Medicine
DX: R59.0 Localized enlarged lymph nodes (principal)
CPT/HCPCS: 70491; 82565

== ENCOUNTER → 2018-07-11 | Outpatient (CLI) | payer MEDICARE, MEDICAID ==
--- NOTE | 2018-07-11 15:17 | RADIOLOGY REPORT (SQ) ---
EXAM DESCRIPTION: MRI HEAD COMBO COMPLETED DATE/TIME: 07/11/2018 2:36 pm REASON FOR STUDY: G35 MULTIPLE SCLEROSIS G35 MULTIPLE SCLEROSIS M62.81 MUSCLE WEAKNESS (GENERALIZE D) COMPARISON: 01/11/2017 TECHNIQUE: Multiplanar imaging includes noncontrasted T1, T2, FLAIR, diffusion with ADC map and post gadolinium contrast T1 sequences. Images stored on PACS. CONTRAST TYPE AND DOSE: 20 mL Dotarem. RENAL FUNCTION: GFR > 60. LIMITATIONS: Patient motion. FINDINGS: ANATOMY: No anomalies. Normal vascular flow voids. Pituitary fossa normal. CSF SPACES: Normal in size and contour. No hemorrhage. CEREBRUM: Stable high-signal intensity lesions scattered throughout white matter with involvement of the corpus callosum. None of the lesions enhance. No mass or hemorrhage. POSTERIOR FOSSA: Patchy areas of subtle signal alteration cerebellar white matter are unchanged. DIFFUSION IMAGING: Negative for acute or subacute infarction. ORBITS: No masses. Globes normal. PARANASAL SINUSES: No fluid levels. Mucosa normal. OTHER: No other significant finding. IMPRESSION: Stable inactive demyelinating lesions. No significant change. EVIDENCE OF ACUTE STROKE: NO. TECHNICAL DOCUMENTATION: JOB ID: [id number] [employer]- All Rights Reserved Reading location - IP/workstation name: [email or web address]
--- NOTE | 2018-07-11 15:44 | RADIOLOGY REPORT (SQ) ---
EXAM DESCRIPTION: MRI CERVICAL SPINE COMBO COMPLETED DATE/TIME: 07/11/2018 2:36 pm REASON FOR STUDY: G35 MULTIPLE SCLEROSIS G35 MULTIPLE SCLEROSIS M62.81 MUSCLE WEAKNESS (GENERALIZE D) COMPARISON: 01/11/2017 TECHNIQUE: Sagittal and Axial imaging includes T1, T2, STIR and gradient echo sequences. T1 post yina olinium sequences. CONTRAST TYPE AND DOSE: See separate report of same date. RENAL FUNCTION: See separate report. LIMITATIONS: Excessive motion. FINDINGS: Grossly unchanged focus of increased T2 signal in the cord at C5 which does not enhance. Fusiform high signal at the C2-3 level does not enhance. No new lesions are identified. Mild degenerative disc disease C4- 5 through C6-7 without evidence of acute disc herniation. IMPRESSION: Technical limitations due to motion. Stable in active demyelinating lesions in the cord . No significant change. COMMENT: None. TECHNICAL DOCUMENTATION: JOB ID: [id number] [employer]- All Rights Reserved Reading location - IP/workstation name: [email or web address]
--- NOTE | 2018-07-11 15:48 | RADIOLOGY REPORT (SQ) ---
EXAM DESCRIPTION: MRI THORACIC SPINE COMBO COMPLETED DATE/TIME: 07/11/2018 2:36 pm REASON FOR STUDY: G35 MULTIPLE SCLEROSIS G35 MULTIPLE SCLEROSIS M62.81 MUSCLE WEAKNESS (GENERALIZE D) COMPARISON: 09/09/2014 TECHNIQUE: Sagittal and Axial imaging includes T1, T2, STIR and gradient echo sequences. T1 post ga dolinium sequences. CONTRAST TYPE AND DOSE: See separate report of the same date. RENAL FUNCTION: See separate report. LIMITATIONS: Motion artifact. FINDINGS: LOCALIZER: No worrisome findings. ALIGNMENT: Normal. VERTEBRAE: Intact. BONE MARROW: Normal. No marrow replacement or reactive changes. HARDWARE: None in the spine. CORD: Prominent central canal. No evidence of focal demyelination. SOFT TISSUES: No soft tissue masses. THORACIC DISCS T1-T12: Stable mild degenerative changes T5 through T9. LOWER CERVICAL: See separate report of the same date. UPPER LUMBAR: Incompletely imaged. No significant spinal stenosis or exit foraminal stenosis. ENHANCEMENT: No abnormal enhancement. OTHER: No other significant finding. IMPRESSION: No evidence of active demyelination. Stable degenerative disc disease. TECHNICAL DOCUMENTATION: JOB ID: [id number]- All Rights Reserved Reading location - IP/workstation name: [email or web address]
== END ==
LOC: RAD 12:12
PROVIDERS: ATTEND Psychiatry & Neurology Neurology
DX: G35 Multiple sclerosis (principal); M62.81 Muscle weakness (generalized); M51.34 Other intervertebral disc degeneration, thoracic region
CPT/HCPCS: 70553; 72156; 72157; A9576

== ENCOUNTER → 2019-10-24 | Outpatient (CLI) | payer MEDICARE, MEDICAID ==
--- NOTE | 2019-10-24 12:43 | RADIOLOGY REPORT (SQ) ---
EXAM DESCRIPTION: MRI HEAD COMBO IMAGES COMPLETED DATE/TIME: 10/24/2019 10:17 am REASON FOR STUDY: MS G35 MULTIPLE SCLEROSIS COMPARISON: 07/11/2018 TECHNIQUE: Multiplanar imaging includes noncontrasted T1, T2, FLAIR, Diffusion with ADC map and post gadolinium contrast T1 sequences. Images stored on PACS. CONTRAST TYPE AND DOSE: 20 mL Prohance. RENAL FUNCTION: Not indicated. ACR Type II contrast agent associated with few, if any, unconfounded cases of NSF LIMITATIONS: None. FINDINGS: ANATOMY: Empty sella anatomic variant. CSF SPACES: Atrophy-induced prominence of CSF spaces and ventricles. CEREBRUM: Periventricular increased signal FLAIR sequence not significantly changed. No new lesions. None of the lesions enhance. POSTERIOR FOSSA: No signal alteration. No hemorrhage. No edema, masses, or mass effect. Internal aileen tory canals, cerebello-pontine angles, mastoids normal. No enhancing lesions. ORBITS: No masses. Globes normal. PARANASAL SINUSES: No fluid levels. Mucosa normal. DIFFUSION: Normal. No evidence of recent infarct. OTHER: No other significant finding. IMPRESSION: Stable in active demyelinating disease consistent with clinical history. No evidence of active demyelination. EVIDENCE OF ACUTE STROKE: NO. TECHNICAL DOCUMENTATION: JOB ID: [id number] 2010 [employer]- All Rights Reserved Reading location - IP/workstation name: [email or web address]
--- NOTE | 2019-10-24 13:15 | RADIOLOGY REPORT (SQ) ---
EXAM DESCRIPTION: MRI CERVICAL SPINE COMBO IMAGES COMPLETED DATE/TIME: 10/24/2019 10:17 am REASON FOR STUDY: MS G35 MULTIPLE SCLEROSIS COMPARISON: 07/11/2018 TECHNIQUE: Sagittal and Axial imaging includes T1, T2, STIR and gradient echo sequences. T1 post yina olinium sequences. CONTRAST TYPE AND DOSE: 20 mL Prohance. RENAL FUNCTION: Not indicated. ACR Type II contrast agent associated with few, if any, unconfounded cases of NSF LIMITATIONS: Motion artifact. FINDINGS: Limitations due to the amount of motion. Focal increased T2 signal in the cord at C5 and fusiform high signal C2-3 unchanged. None of the lesions enhance. Mild degenerative disc disease lower cervical spine not significantly changed. No evidence of acute disc herniation. IMPRESSION: Stable inactive demyelinating disease. COMMENT: None. TECHNICAL DOCUMENTATION: JOB ID: [id number] 2010 [employer]- All Rights Reserved Reading location - IP/workstation name: [email or web address]
--- NOTE | 2019-10-24 13:35 | RADIOLOGY REPORT (SQ) ---
EXAM DESCRIPTION: MRI THORACIC SPINE COMBO IMAGES COMPLETED DATE/TIME: 10/24/2019 10:17 am REASON FOR STUDY: MS G35 MULTIPLE SCLEROSIS COMPARISON: 07/11/2018 TECHNIQUE: Sagittal and Axial imaging includes T1, T2, STIR and gradient echo sequences. T1 post ga dolinium sequences. CONTRAST TYPE AND DOSE: 20 mL Prohance. RENAL FUNCTION: Not indicated. ACR Type II contrast agent associated with few, if any, unconfounded cases of NSF LIMITATIONS: Motion. FINDINGS: LOCALIZER: No worrisome findings. ALIGNMENT: Normal. VERTEBRAE: Intact. BONE MARROW: Hemangioma T12. HARDWARE: None in the spine. CORD: Normal in size and signal intensity. SOFT TISSUES: No soft tissue masses. THORACIC DISCS T1-T12: Mild degenerative changes T5 through T9. LOWER CERVICAL: See separate report. UPPER LUMBAR: Incompletely imaged. No significant spinal stenosis or exit foraminal stenosis. ENHANCEMENT: No abnormal enhancement. OTHER: No other significant finding. IMPRESSION: No evidence of active demyelinating disease. TECHNICAL DOCUMENTATION: JOB ID: [id number] 2010 [employer]- All Rights Reserved Reading location - IP/workstation name: [email or web address]
== END ==
LOC: RAD 08:13
PROVIDERS: ATTEND Psychiatry & Neurology Neurology
DX: G35 Multiple sclerosis (principal)
CPT/HCPCS: 82565; 70553; 72156; 72157; A9576